=== PATIENT | female | born 1980 | race African-American/Black ===

== ENCOUNTER 2019-06-29 22:56 | Emergency (ER) | payer OTHER ==
[~2019-06-29] VITALS: Ht 152.4 cm; Wt 88.9 kg
[2019-06-30] MEDS ORDERED: TRAMADOL 50 MG50 MG PO (02:42)
[2019-06-30] MEDS ORDERED: NAPROSYN500 MG PO (02:42)
[2019-06-30 03:00] VITALS: BP 108/58
== END 2019-06-30 03:00 | disposition home or self-care (01) ==
LOC: ER 22:56
DX: S16.1XXA Strain of muscle, fascia and tendon at neck level, initial encounter (principal); S39.012A Strain of muscle, fascia and tendon of lower back, initial encounter; S70.01XA Contusion of right hip, initial encounter; S40.021A Contusion of right upper arm, initial encounter; M79.7 Fibromyalgia; V89.2XXA Person injured in unspecified motor-vehicle accident, traffic, initial encounter; Y92.89 Other specified places as the place of occurrence of the external cause; Y93.89 Activity, other specified; Y99.8 Other external cause status